=== PATIENT | male | born 1950 | race Caucasian/White ===

== ENCOUNTER → 2018-05-07 06:47 | Day surgery (SDC) | payer MEDICARE ==
[~2018-05-07 06:47] MED LIST: Heparin 2 UNITS/ML IVPREMIX* 1,000 ML IV ONE; Heparin 2 UNITS/ML IVPREMIX* 2,000 ML IV ONE; Heparin(*) 1000 UNIT/ML 10 ML VIAL CATH LAB IV ONE; Iodixanol* (CONTRAST) 320 MG/ML 100 ML SDV ONE; Iohexol 350 (CONTRAST) 200 ML MDV IV ONE; LORazepam TAB(*) 1 MG ONE; Lidocaine 1% INJ* 10 MG/ML 30 ML SDV ONE; Midazolam* 1 MG/ML 10 ML VIAL (10 MG) ONE; ceFAZolin 1 GM in Dextrose (*) 1 GM/50 ML BAG IVPB ONE; diPHENhydraMINE PO* 25 MG ONE; fentaNYL* 50 MCG/ML 2 ML VIAL (100 MCG VIAL) ONE; nitroGLYCERIN DRIP* 25,000 MCG/250 ML BTL ONE
[2018-05-07 14:33] VITALS: BP 138/85
--- NOTE | 2018-05-10 15:49 | RAD ---
CPT II Codes: G9500 Procedure(s) performed: 1. Diagnostic pelvic and left lower extremity arteriogram. 2. Revascularization of occluded long segment left superficial femoral artery occlusion. 3. Serial balloon angioplasty of left superficial femoral artery. 4. Stenting of the left superficial femoral artery. 5. Percutaneous minx closure device deployed successfully at the right common femoral arteriotomy. Date of service: May 08, 2018 Indication for procedure: Left leg claudication Comparison: Angiography dated April 20, 2018 as well as RAFAL/PVR dated February 04, 2018 Contrast: 110 mL Visipaque 320 Fluoroscopy Time: 32.2 minutes Vessels Accessed: Percutaneous access was obtained with ultrasound guidance in the right common femoral artery in the retrograde direction towards the heart. Catheter arteriography, with the catheter tip located within the lumen of the following arteries, was performed at the right external iliac artery, aorta, left external iliac artery, left common femoral artery and left popliteal artery. Anesthesia: Conscious sedation with IV Fentanyl and Versed as well as local 1% lidocaine injected locally at the arteriotomy site. Conscious sedation time: Timeout: 0845 hours Case end: 1205 hours Total conscious sedation time: 3 hours and 20 minutes Additional medications: * 600 mcg IA nitroglycerin injected intermittently throughout the course of the procedure to alleviate arterial spasm. * IV heparin 10,000 Units to achieve a goal ACT of 250-300. * The patient received 1 mg of p.o. Ativan prior to the onset of the procedure. * Ancef 1 g IV PROCEDURE NOTE AND INTRAPROCEDURAL IMAGING FINDINGS: Immediately prior to the procedure the patient signed consent after thoroughly discussing all risks, benefits and alternative therapies. The patient was positioned on the fluoroscopy table in the supine position and the bilateral groins and left ankle were shaved, prepped and the patient was draped in standard sterile fashion. Using fluoroscopic imaging the location of the left common femoral head was marked externally with a skin marker on the patient's groin. Utilizing sonographic guidance and palpation, the right common femoral artery was cannulated overlying the femoral head with an 18-gauge needle. An ultrasound image was saved. A 0.035" wire was slowly and smoothly advanced into the common femoral artery under fluoroscopic imaging. No buckling of the wire was visualized to indicate dissection. With the wire securing percutaneous arterial access, the needle was removed and a 5-Niuean SideArm access sheath was advanced under fluoroscopic control into the common femoral artery antegrade into the proximal superficial femoral artery securing access. Although the patient had undergone prior left leg arteriography, a pelvic arteriogram was necessary to determine lower abdominal aortic and iliac arterial disease. Over the wire a flush catheter was advanced into the lower abdominal aorta and arteriography was performed showing the lower abdominal aorta and bilateral iliac arterial system to be adequately patent. As was discerned on the prior angiogram, there is abrupt occlusion at the proximal left superficial femoral artery immediately below the ostium. A hydrophilic wire was inserted into the flush catheter and the catheter was exchanged for a 5-Niuean C2 catheter which was utilized to access the left common iliac artery. A hydrophilic wire was advanced into the left femoral profundus, the C2 catheter was advanced over the wire and finally the standard hydrophilic wire was exchanged for a stiff hydrophilic wire. The C2 catheter was removed followed by the short 5-Niuean sheath and over the stiff hydrophilic wire a 6-Niuean, 45 cm length sheath was advanced until the tip terminated at the left common femoral artery. An arteriogram was performed through the sheath at the left common femoral artery clearly demonstrating the occlusion at the left superficial femoral artery immediately below the ostium. Arteriography of the left thigh and level of the knee again demonstrated long segment occlusion from the origin of the left superficial femoral artery extending to the distal superficial femoral artery. The distal superficial femoral artery and popliteal artery fills by collateralized flow provided by hypertrophied branches of the left femoral profundus. Utilizing a combination of a 4-Niuean curved tip catheter and the 0.035 inch hydrophilic wire the occluded left superficial femoral artery "nipple" was engaged. Utilizing the combination of the catheter and wire the occluded superficial femoral artery was revascularize. At approximately the midpoint of the occluded left superficial femoral artery, the soft hydrophilic wire was removed and replaced with a stiff hydrophilic wire which was utilized to gain true lumen access to the distal left superficial femoral artery beyond the occlusion. A 4-Niuean hydrophilic catheter was pushed over the wire until the tip terminated at the distal left superficial femoral artery. The wire was removed and contrast arteriography was performed which demonstrated true lumen access into the more distal superficial femoral artery beyond the occlusion. Through this catheter a 0.014" Advantage wire was advanced under fluoroscopic control into the posterior tibial artery into the tip terminated just above the level the ankle. With this wire serving as the working wire cross the occluded left superficial femoral artery the business of serial angioplasty and stenting began. Intermittently contrast was injected through the access sheath with the tip in the left common femoral artery and did not demonstrate any extravasation or other complication. Balloon angioplasty was first performed with a Passeo-14 3 mm x 140 mm balloon. This was removed and replaced with a Passeo-18 5 mm x 200 mm balloon. This balloon was inflated to 12 óscar corresponding to a diameter measurement of 5.2 mm. During the course of these inflations the patient reported no pain indicating a larger balloon was appropriate. Next balloon angioplasty was performed with a Passeo-18 6 mm x 200 mm balloon. The balloon was inflated to 12 óscar corresponding to a diameter measurement of 6.2 mm. Once again the patient did not report any significant pain with inflation indicating a larger balloon could be used. The occluded superficial femoral artery was inflated with a 7 mm x 200 mm EverCross balloon to nominal pressure corresponding to 7 mm. At this point the patient expressed mild "tingling" and discomfort with balloon angioplasty which subsided after 1 minute. During each inflation the balloon remained inflated for minimum of 3 minutes to address vasospasm. Balloon angioplasty up to 7 mm with only mild discomfort indicated that the 7 mm self-expanding stents would be appropriate to revascularize the patient's occluded left superficial femoral artery. A series of stents were deployed from the superior superficial femoral artery approximately 1 cm beyond the occlusion to immediately below the ostium proximally. The series of stents deployed were as follows from distal to proximal: Two (2) 7 mm x 150 mm ev3 Everflex self-expanding stents. Pulsar 18 7 mm x 80 mm self-expanding stent. Pulsar 18 7 mm x 60 mm self-expanding stent. After each individual stent placement balloon angioplasty with 7 mm appropriate length balloon was performed in the recently deployed stent to discern any elongation prior to placing the following stent. Extraordinary care guided by additional angiograms from the left common femoral artery was utilized to assure the proximalmost stent proximal edge was flush with the ostium of the left superficial femoral artery. The arteriogram after the final stent placement demonstrates the edge of the proximal most stents aligned with the ostium of the left superficial femoral artery with no overlap of the ostia of the femoral profundus. Brisk in-line flow is seen through the recently stented SFA occlusion into the distal SFA and popliteal arteries with in-line flow into the proximal infrapopliteal arteries. Satisfied with the final angiographic result, the procedure proceeded to right common femoral arteriotomy closure. The microwire was exchanged for a 0.035 inch Bentson wire. Over the Bentson wire the access sheath was exchanged for a new 6-Niuean, 11 cm length access sheath intended specifically for percutaneous arterial closure. Through the side arm of the access sheath arteriography of the right common femoral artery demonstrated an appropriate puncture of the common femoral artery above the bifurcation and below the inferior epigastric artery. After an appropriate resterilization of the arteriotomy and exchange for new sterile gloves, a Minx closure device was deployed at the common femoral arteriotomy and pressure held for approximately 15 minutes. There were no signs of bleeding at the percutaneous arterial access site and the site was dressed with sterile gauze and Tegaderm. The patient tolerated the procedure well and was transferred to angiography holding bay for standard post procedural observation. SUMMARY OF PROCEDURE, IMAGING FINDINGS AND INTERVENTIONS PERFORMED: 1. Diagnostic studies performed: * Arterial access was obtained at the right common femoral artery in the retrograde direction (i.e. towards the heart) with ultrasound guidance. A sonographic image was recorded. * Diagnostic catheter angiography (necessary to perform the appropriate interventions) was performed with the catheter tip in the right external iliac artery, aorta, left common femoral artery, left superficial femoral artery and left popliteal artery. * Catheter arteriography was performed of the lower abdominal aorta and bilateral iliac arterial system as well as the left lower extremity arterial system as far as the foot. * At the conclusion of the procedure arteriography was performed through the side arm of the access sheath to image the distal right external iliac artery, right common femoral artery and proximal superficial femoral artery and femoral profundus. 2. Interpretation of diagnostic studies performed: * Adequately patent infrarenal abdominal aorta and bilateral iliac arteries. * Again seen is a long segment occlusion measuring approximately 35 cm immediately below the ostium of the left superficial femoral artery extending to the distal left superficial femoral artery as it emerges from Cameron's canal. * Arteriography performed for the purpose of deploying a percutaneous arterial closure device demonstrates adequately patent right external iliac artery, common femoral artery and proximal superficial femoral artery and femoral profundus. 3. Surgical interventions performed: * The occluded left superficial femoral artery was revascularize utilizing a combination of a 0.035 inch hydrophilic wire and 4-Niuean curved tip catheter. * After achieving wire access across the occluded superficial femoral artery into true lumen of the distal SFA and popliteal artery, the patient underwent serial balloon angioplasty of the occluded left superficial femoral artery culminating with 7 mm x 200 mm EverCross balloons. * Long segment self expanding stents of the previously occluded left superficial femoral arteries worse follows from distal to proximal: * Two (2) 7 mm x 150 mm ev3 Everflex self-expanding stents. * Pulsar-18 7 mm x 80 mm self-expanding stent. * Pulsar-18 7 mm x 60 mm self-expanding stent. * Closure of the right common femoral artery was achieved with a Minx closure device followed by 15 minutes of gentle manual pressure. 4. Interpretation of interventions performed: * Final arteriography demonstrated brisk patent flow through the previously occluded left superficial femoral artery after long segment stenting. * The proximal average of the proximal most self expanding stent is satisfactorily "flush" with the ostium of the left superficial femoral artery. There is no significant overlap with the ostium of the adjacent femoral profundus. Following the procedure at the time of dictation it was discovered that more than half of the images from the procedure were not available on PACS. Upon further inquiry and investigation it was discovered that due to a computer glitch many of the images from the procedure had been erased. This was investigated both with the in-house PACS specialists and by the [employer] IT support. Unfortunately, at the time of signing this note it is has determined that the images will not be retrievable. Specifically, none of the images of balloon angioplasty or stent deployment were saved. The final arteriogram recording brisk flow through the revascularized left superficial femoral artery has also been lost. Plan: 1. Aspirin 81 mg p.o. daily for life. 2. Plavix 75 mg p.o. daily. 3. Clinical and imaging follow-up according to standard Interventional Radiology protocol.
== END | disposition home or self-care (01) ==
LOC: CHICATH 06:47
PROVIDERS: ATTEND Radiology Diagnostic Radiology
DX: I70.212 Atherosclerosis of native arteries of extremities with intermittent claudication, left leg (principal); I10 Essential (primary) hypertension; E78.5 Hyperlipidemia, unspecified; Z72.0 Tobacco use
CPT/HCPCS: 75736; 76937; 85347; 99156; 99157; A9270-GY; C1725; C1760; C1769; C1876; C1887; J0690; J1644; J2250; J3010

== ENCOUNTER 2018-11-06 10:04 | Emergency (ER) | payer MEDICARE ==
[2018-11-06 11:54] VITALS: BP 152/68
--- NOTE | 2018-11-06 12:33 | UC ---
UC General HPI - HPI Summary HPI Summary: PT C/O A 7 DAY HX NASAL CONGESTION WITH DRAINAGE AND COUGH WITH CHEST CONGESTION. NO FEVER, CP, SOB, OR BLOODY NASAL DISCHARGE. HAS SAME BUT SHE HAS BEEN SICK LONGER. SHE IS BEING TX WITH AN ANTIBIOTIC. NO HX ASTHMA OR COPD. - History of Current Complaint Chief Complaint: UCGeneralIllness Stated Complaint: COUGH Time Seen by Provider: 11/06/18 12:26 Hx Obtained From: Patient Onset/Duration: Gradual Onset Timing: Constant Pain Intensity: 0 Associated Signs & Symptoms: Negative: Fever, Headache - Allergy/Home Medications Allergies/Adverse Reactions: Allergies Allergy/AdvReac Type Severity Reaction Status Date / Time iv dye Allergy Vomiting Uncoded 11/06/18 11:36 Home Medications: Home Medications guaiFENesin LIQ* [Robitussin*] 10 ml PO Q4H PRN 11/06/18 [History Confirmed ] PMH/Surg Hx/FS Hx/Imm Hx - Additional Past Medical History Additional PMH: PVD, WHITE COAT HTN Endocrine History: Thyroid Disease, Dyslipidemia - Surgical History Surgery Procedure, Year, and Place: R lung lobectomy. thyroidectomy. stents x4 in left leg - Family History Known Family History: Positive: Non-Contributory - Social History Lives: With Family Alcohol Use: Daily Alcohol Amount: 6 beers daily Substance Use Type: None Smoking Status (MU): Heavy Every Day Tobacco Smoker Type: Cigarettes Amount Used/How Often: 1 PPD Review of Systems All Other Systems Reviewed And Are Negative: Yes Constitutional: Negative: Fever ENT: Positive: Nasal Discharge, Sinus Congestion. Negative: Sinus Pain/ Tenderness Respiratory: Positive: Cough. Negative: Shortness Of Breath Cardiovascular: Negative: Chest Pain Physical Exam Triage Information Reviewed: Yes Appearance: Well-Appearing Vital Signs: Initial Vital Signs Temp 98.3 F 11/06/18 11:37 Pulse 82 11/06/18 11:37 Resp 17 11/06/18 11:37 BP 152/68 11/06/18 11:37 Pulse Ox 96 11/06/18 11:37 Vital Signs Reviewed: Yes Eyes: Positive: Conjunctiva Clear ENT: Positive: Pharynx normal, Nasal congestion, TMs normal. Negative: Nasal drainage, Sinus tenderness Neck: Positive: Supple, Nontender, No Lymphadenopathy Respiratory: Positive: Lungs clear, Normal breath sounds, No respiratory distress, Other: - COUGH IS CONGESTED Cardiovascular: Positive: RRR, No Murmur Abdomen Description: Positive: Nontender Bowel Sounds: Positive: Present Musculoskeletal: Positive: ROM Intact Neurological: Positive: Alert Psychological: Positive: Age Appropriate Behavior Skin Exam: Normal Course/Dx - Course Course Of Treatment: PT STATES THE BP IS FROM [place] COAT, HE HAS A NORMAL BP OUTSIDE DOCTOR VISITS. WILL HAVE PT CONTINUE HIS OTC TX, IF NOT BETTER IN 3 DAYS. HE WILL START IT SOONER IF WORSE. - Diagnoses Provider Diagnosis: URI (upper respiratory infection), Bronchitis Discharge - Sign-Out/Discharge Documenting (check all that apply): Patient Departure All imaging exams completed and their final reports reviewed: No Studies - Discharge Plan Condition: Stable Disposition: HOME Prescriptions: Amoxicillin/Clavulanate TAB* [Augmentin TAB 875*] 875 mg PO BID 10 Days #20 tab Patient Education Materials: Upper Respiratory Infection (DC), Acute Bronchitis (ED) Referrals: Lamont Zaragoza DO [Primary Care Provider] - 7 Days Additional Instructions: START THE ANTIBIOTIC IF NOT BETTER IN 3 DAYS. START IT SOONER IF WORSE. - Billing Disposition and Condition Condition: STABLE Disposition: Home - Attestation Statements Provider Attestation: I was available for consult. This patient was seen by the ANA LAURA. The patient was not presented to, seen by, or examined by me. EK
== END 2018-11-06 12:46 | disposition home or self-care (01) ==
LOC: UCCORT 10:04
DX: J06.9 Acute upper respiratory infection, unspecified (principal); J20.9 Acute bronchitis, unspecified; I10 Essential (primary) hypertension; F17.210 Nicotine dependence, cigarettes, uncomplicated; Z91.041 Radiographic dye allergy status
CPT/HCPCS: 99212; G0463

== ENCOUNTER 2019-09-22 06:19 | Day surgery (SDC) | payer MEDICARE ==
[~2019-09-22 06:19] MED LIST changes: +Buffered Lidocaine 1% SYRIN* 1 ML/SYRINGE INTRADERM ONE; +Dexamethasone IV* 4 MG/ML 1 ML (4 MG) IV SLOW PU ONE; +Famotidine IV* 10 MG/ML 2 ML (20 mg) IV ONE; -Heparin 2 UNITS/ML IVPREMIX* 1,000 ML IV ONE; -Heparin 2 UNITS/ML IVPREMIX* 2,000 ML IV ONE; -Heparin(*) 1000 UNIT/ML 10 ML VIAL CATH LAB IV ONE; -Iodixanol* (CONTRAST) 320 MG/ML 100 ML SDV ONE; -Iohexol 350 (CONTRAST) 200 ML MDV IV ONE; -LORazepam TAB(*) 1 MG ONE; +Lactated Ringers 1000 ML Bag* 1,000 ML IV SCH; -Lidocaine 1% INJ* 10 MG/ML 30 ML SDV ONE; -Midazolam* 1 MG/ML 10 ML VIAL (10 MG) ONE; -ceFAZolin 1 GM in Dextrose (*) 1 GM/50 ML BAG IVPB ONE; -diPHENhydraMINE PO* 25 MG ONE; -fentaNYL* 50 MCG/ML 2 ML VIAL (100 MCG VIAL) ONE; -nitroGLYCERIN DRIP* 25,000 MCG/250 ML BTL ONE
[2019-09-22] MEDS ORDERED: Dexamethasone IV* 4 MG/ML 1 ML (4 MG) ONE ×2 (06:21→06:22)
[2019-09-22] MEDS ORDERED: Famotidine IV* 10 MG/ML 2 ML (20 mg) ONE ×2 (06:22)
[2019-09-22] MEDS ORDERED: Bupivacaine 0.25% SDV* 30 ML ONE (07:30)
[2019-09-22] MEDS ORDERED: fentaNYL* 50 MCG/ML 2 ML VIAL (100 MCG VIAL) ONE (07:36)
[2019-09-22] MEDS ORDERED: Midazolam* 1 MG/ML 2 ML VIAL (2 MG) ONE (07:37)
[2019-09-22] MEDS ORDERED: Lidocaine 2% PF * 5 ML VIAL ONE (07:37)
[2019-09-22] MEDS ORDERED: Propofol* 10 MG/ML 20 ML BTL ONE (07:37)
[2019-09-22] MEDS ORDERED: Naloxone* 0.4 MG/ML 1 ML VIAL IV PRN (07:52)
[2019-09-22] MEDS ORDERED: oxyCODONE/Acetamin 5/325 MG* TAB PO PRN (07:52)
[2019-09-22] MEDS ORDERED: HYDROcodone/ACETAMIN 5-325 MG* 1 TAB PO PRN (07:52)
[2019-09-22] MEDS ORDERED: Ketorolac INJ* 30 MG/ML 1 ML VIAL IV PRN (07:52)
[2019-09-22] MEDS ORDERED: DiMENhydriNATE IV* 50 MG/ML VIAL IV PUSH PRN (07:52)
[2019-09-22] MEDS ORDERED: fentaNYL* 50 MCG/ML 2 ML VIAL (100 MCG VIAL) IV PRN (07:52)
[2019-09-22] MEDS ORDERED: EPHEDrine (Pressors)* 50 MG/ML VIAL ONE (08:06)
[2019-09-22] MEDS ORDERED: Ondansetron INJ* 2 MG/ML VIAL ONE (08:20)
[2019-09-22 09:10] VITALS: BP 126/76
--- NOTE | 2019-09-22 18:27 | OP ---
DATE OF OPERATION: 09/22/19 [facility]ED WITH [facility] DATE OF : 52 SURGEON: Adama Groves MD. SUSTAINABLE COMMUNITIES DESIGNER: SHRUTHI Berry. ANESTHESIOLOGIST: Dr. Almaguer. ANESTHESIA: General. PRE-OP DIAGNOSIS: Right carpal tunnel syndrome. POST-OP DIAGNOSIS: Right carpal tunnel syndrome. OPERATIVE PROCEDURE: Right endoscopic carpal tunnel release. INDICATIONS: Mr. Ayala has right carpal tunnel syndrome that has been progressive, it is getting quite severe. We talked about treatment options. He wanted to proceed with surgery. ESTIMATED BLOOD LOSS: 2 mL. COMPLICATIONS: None. FINDINGS: See above and below. DESCRIPTION OF PROCEDURE: The patient was seen in the preoperative holding area. The correct site, side, and procedures were identified. We came back to the operating room. The arm was prepped and draped in the usual fashion and time-out was performed. The arm was exsanguinated and the tourniquet inflated. I made a 1 cm transverse incision just ulnar to the palmaris longus tendon. I spread down and split the distal antebrachial fascia transversely with tenotomy scissors. A two-prong skin hook was placed. I dilated, opened the carpal tunnel. The MicroAire endoscopic carpal tunnel system was placed into the appropriate location. With direct visualization, I elevated the blade. The release was carried out from distal to proximal. Once I completed the release distally and confirmed that, I then released the distal antebrachial fascia proximally with tenotomy scissors. At this point, the release looked excellent. The wound was irrigated out. Skin was closed with 4-0 Prolene suture and a Steri-Strip. 0.25 % Marcaine was infiltrated and he was taken to the recovery room in stable condition. [id number]/[facility]PS #: [id number] MTDD
== END 2019-09-22 09:30 | disposition home or self-care (01) ==
LOC: OREAST 06:19
PROVIDERS: ATTEND Orthopaedic Surgery Hand Surgery
DX: G56.01 Carpal tunnel syndrome, right upper limb (principal); I10 Essential (primary) hypertension; E78.5 Hyperlipidemia, unspecified; I45.10 Unspecified right bundle-branch block; I73.9 Peripheral vascular disease, unspecified; E03.9 Hypothyroidism, unspecified; F17.210 Nicotine dependence, cigarettes, uncomplicated; Z85.46 Personal history of malignant neoplasm of prostate
CPT/HCPCS: J1100; J2250; J2405; J2704; J3010; J3490

== ENCOUNTER 2019-10-13 07:07 | Day surgery (SDC) | payer MEDICARE ==
[~2019-10-13 07:07] MED LIST changes: -Dexamethasone IV* 4 MG/ML 1 ML (4 MG) IV SLOW PU ONE
[2019-10-13] MEDS ORDERED: Famotidine IV* 10 MG/ML 2 ML (20 mg) ONE (07:21)
[2019-10-13] MEDS ORDERED: Midazolam* 1 MG/ML 5 ML VIAL (5 MG) ONE (08:27)
[2019-10-13] MEDS ORDERED: Bupivacaine 0.25% SDV* 30 ML ONE (08:36)
[2019-10-13] MEDS ORDERED: Naloxone* 0.4 MG/ML 1 ML VIAL IV PRN (08:40)
[2019-10-13] MEDS ORDERED: Acetaminophen TAB* 325 MG PO PRN (08:40)
[2019-10-13] MEDS ORDERED: fentaNYL* 50 MCG/ML 2 ML VIAL (100 MCG VIAL) ONE (09:10)
[2019-10-13] MEDS ORDERED: Ketorolac INJ* 30 MG/ML 1 ML VIAL ONE (09:11)
[2019-10-13] MEDS ORDERED: Ondansetron INJ* 2 MG/ML VIAL ONE (09:11)
[2019-10-13] MEDS ORDERED: Propofol* 10 MG/ML 20 ML BTL ONE (09:11)
[2019-10-13] MEDS ORDERED: Dexamethasone IV* 4 MG/ML 1 ML (4 MG) ONE (09:11)
[2019-10-13] MEDS ORDERED: Lidocaine 2% PF * 5 ML VIAL ONE (09:11)
[2019-10-13 10:06] VITALS: BP 123/79
--- NOTE | 2019-10-14 02:42 | OP ---
DATE OF OPERATION: 10/13/[address] [facility] DATE OF : 52 SURGEON: Adama Groves MD MOTOR VEHICLE LIGHT ASSEMBLER: SHRUTHI Berry ANESTHESIOLOGIST: Dr. Corado. ANESTHESIA: General. PRE-OP DIAGNOSIS: Left carpal tunnel syndrome. POST-OP DIAGNOSIS: Left carpal tunnel syndrome. OPERATIVE PROCEDURE: Left endoscopic carpal tunnel release. INDICATIONS: Mr. Ayala has the carpal tunnel syndrome. We talked about treatment options, risks, and benefits. He wanted to proceed. We have already done the right side. ESTIMATED BLOOD LOSS: 2 mL. COMPLICATIONS: None. FINDINGS: See above and below. DESCRIPTION OF PROCEDURE: Mr. Ayala was seen in the preoperative holding area. The correct site, side, and procedure were identified. We came back to the operating room. The arm was prepped and draped in the usual fashion and a time- out was performed. The arm was exsanguinated. The tourniquet was inflated. I made a 1-cm transverse incision just ulnar to the palmaris longus tendon. Dissection was carried down through the subcutaneous tissue. The distal antebrachial fascia was split transversely with a tenotomy scissors bluntly and then a 2-prong skin hook was placed under the fascia. The carpal tunnel was dilated open and then the MicroAire endoscopic system was introduced. It was in the appropriate location. I elevated the blade and the release was carried out from distal to proximal. Once I confirmed the release distally, I released the distal antebrachial fascia proximally. At this point, the release was looking very nice. We irrigated out the wound. Skin was closed with 4-0 Prolene suture and Steri- Strips. 0.25% Marcaine was infiltrated and soft dressings were applied. He was taken to the recovery room in stable condition. [id number]/[facility] #: [id number] MTDD
== END 2019-10-13 10:25 | disposition home or self-care (01) ==
LOC: OREAST 07:07
PROVIDERS: ATTEND Orthopaedic Surgery Hand Surgery
DX: G56.02 Carpal tunnel syndrome, left upper limb (principal); E89.0 Postprocedural hypothyroidism; I73.9 Peripheral vascular disease, unspecified; C61 Malignant neoplasm of prostate; E78.2 Mixed hyperlipidemia; I45.10 Unspecified right bundle-branch block; F17.210 Nicotine dependence, cigarettes, uncomplicated; Z95.820 Peripheral vascular angioplasty status with implants and grafts; Z98.890 Other specified postprocedural states; Z68.27 Body mass index [BMI] 27.0-27.9, adult; Z79.82 Long term (current) use of aspirin; Z91.041 Radiographic dye allergy status
CPT/HCPCS: J1100; J1885; J2250; J2405; J2704; J3010; J3490